=== PATIENT | male | born 1975 ===

== ENCOUNTER 2018-05-08 16:50 | Emergency (ER) | payer OTHER ==
--- NOTE | 2018-05-08 16:56 | UC ---
Respiratory Complaint HPI - HPI Summary HPI Summary: 43 yo male presents with sinus congestion and runny nose intermittently for the last month. Really started to bother him last night. He has not been taking anything OTC. Denies fever, chills, sore throat, cough, rash, n/v. - History of Current Complaint Stated Complaint: COUGH Time Seen by Provider: 05/08/18 16:53 Hx Obtained From: Patient Severity Initially: Mild Severity Currently: Mild Pain Intensity: 2 Pain Scale Used: 0-10 Numeric - Allergies/Home Medications Allergies/Adverse Reactions: Allergies Allergy/AdvReac Type Severity Reaction Status Date / Time No Known Allergies Allergy Verified 05/08/18 17:18 PMH/Surg Hx/FS Hx/Imm Hx - Additional Past Medical History Additional PMH: None - Surgical History Surgical History: None - Family History Known Family History: Positive: None - Social History Occupation: Employed Full-time Lives: With Family Alcohol Use: Occasionally Substance Use Type: None Smoking Status (MU): Light Every Day Tobacco Smoker Type: Cigarettes Review of Systems All Other Systems Reviewed And Are Negative: Yes Constitutional: Positive: Negative Skin: Positive: Negative Eyes: Positive: Negative ENT: Positive: Nasal Discharge, Sinus Congestion Respiratory: Positive: Negative Cardiovascular: Positive: Negative Gastrointestinal: Positive: Negative Neurovascular: Positive: Negative Neurological: Positive: Negative Psychological: Positive: Negative Physical Exam - Summary Physical Exam Summary: GENERAL: NAD. WDWN. No pain distress. SKIN: No rashes, sores, lesions, or open wounds. HEENT: Head: AT/NC Eyes: EOM intact. Conjunctiva clear without inflammation or discharge. Ears: Hearing grossly normal. TMs intact, no bulging, erythema, or edema. Nose: Nasal mucosa pink and moist. NTTP maxillary and frontal sinus. Throat: Posterior oropharynx without exudates, erythema, or tonsillar enlargement. Uvula midline. NECK: Supple. Nontender. No lymphadenopathy. CHEST: CTAB. No r/r/w. No accessory muscle use. Breathing comfortably and in no distress. CV: RRR. Without m/r/g. Pulses intact. Cap refill <2seconds NEURO: Alert. PSYCH: Age appropriate behavior. Triage Information Reviewed: Yes Vital Signs: Vital Signs: Temp Pulse Resp BP Pulse Ox 97.8 F 79 16 117/84 99 05/08/18 17:19 05/08/18 17:19 12/22/18 17:19 05/08/18 17:19 05/08/18 17:19 Vital Signs Reviewed: Yes Respiratory Course/Dx - Course Course Of Treatment: Suspect allergies vs viral sinusitis. Rx for flonase and mucinex and f/u if symptoms worsen. - Differential Dx/Diagnosis Provider Diagnosis: Viral sinusitis Discharge - Sign-Out/Discharge Documenting (check all that apply): Patient Departure All imaging exams completed and their final reports reviewed: No Studies - Discharge Plan Condition: Stable Disposition: HOME Prescriptions: Fluticasone NASAL SPRAY 50MCG* [Flonase NASAL SPRAY 50MCG*] 2 spray BOTH NARES DAILY #1 btl guaiFENesin ER TAB [Mucinex*] 600 mg PO BID #20 tab.er Patient Education Materials: Upper Respiratory Infection (ED) Referrals: Chi Phan MD [Primary Care Provider] - Additional Instructions: If you develop a fever, shortness of breath, chest pain, new or worsening symptoms - please call your PCP or go to the ED. 1) Your symptoms are likely due to a viral illness and will improve with time. Antibiotics are not indicated at this time. 2) If your symptoms worsen or continue please see your Primary Doctor - Billing Disposition and Condition Condition: STABLE Disposition: Home - Attestation Statements Provider Attestation: I was available for consult. This patient was seen by the MANDO. The patient was not presented to , seen by or examined by dc -Noelle Jackson MD
[2018-05-08 17:22] VITALS: BP 117/84
== END 2018-05-08 17:25 | disposition home or self-care (01) ==
LOC: UCEAST 16:50
DX: J32.9 Chronic sinusitis, unspecified (principal); B97.89 Other viral agents as the cause of diseases classified elsewhere; F17.210 Nicotine dependence, cigarettes, uncomplicated
CPT/HCPCS: 99212; G0463